=== PATIENT | male | born 1995 | race Two or more races ===

== ENCOUNTER 2017-04-20 23:31 | Emergency (ER) | payer SELFPAY ==
[~2017-04-20] VITALS: Ht 182.9 cm; Wt 71.7 kg
[2017-04-20 23:37] VITALS: BP 134/74
[2017-04-20] MEDS ORDERED: PRED20TA PO (23:46)
[2017-04-20] MEDS ORDERED: AMOX1TAB61 PO (23:46)
--- NOTE | 2017-04-20 23:46 | PHYS DOC ---
Adult General Chief Complaint Chief Complaint: SORE THROAT HPI HPI Patient is a 21 year old male presents to the ED complaining of sore throat 3 days. Describes his sore throat as sharp. Rates the pain as 6 out of 10. Associated symptoms include subjective fever and ear pain. Tolerating PO. Denies nausea/vomiting, headache, chest pain, shortness of breath, abdominal pain, weakness, dizziness or rash. Review of Systems Review of Systems Constitutional: Denies fever or chills [] Eyes: Denies change in visual acuity, redness, or eye pain [] HENT: Complains of sore throat and ear pain. [] Respiratory: Denies cough or shortness of breath [] Cardiovascular: No additional information not addressed in HPI [] GI: Denies abdominal pain, nausea, vomiting, bloody stools or diarrhea [] : Denies dysuria or hematuria [] Musculoskeletal: Denies back pain or joint pain [] Integument: Denies rash or skin lesions [] Neurologic: Denies headache, focal weakness or sensory changes [] Endocrine: Denies polyuria or polydipsia [] All other systems were reviewed and found to be within normal limits, except as documented in this note. Current Medications Current Medications Current Medications Medications (Trade) Dose Ordered Sig/Ryan Start Time Stop Time Status Last Admin Dose Admin Acetaminophen/ Hydrocodone Bitart (Lortab 5/325) 1 tab 1X ONCE 04/21/17 00:00 04/21/17 00:01 DC 04/21/17 00:02 1 TAB Amoxicillin/ Clavulanate Potassium (Augmentin 875/ 125mg) 1 tab 1X ONCE 04/21/17 00:00 04/21/17 00:01 DC 04/21/17 00:09 1 TAB Dexamethasone Sodium Phosphate (Decadron) 8 mg 1X ONCE 04/21/17 00:00 04/21/17 00:01 DC 04/21/17 00:02 8 MG Allergies Allergies Allergies Coded Allergies Type Severity Reaction Last Updated Verified No Known Drug Allergies 04/20/17 No Physical Exam Physical Exam Constitutional: Well developed, well nourished, no acute distress, non-toxic appearance. [] HENT: Normocephalic, atraumatic, bilateral external ears normal, oropharynx moist, MILD PHARYNGEAL ERYTHEMA WITH EXUDATE. UVULA MIDLINE., nose normal. [] Eyes: PERRLA, EOMI, conjunctiva normal, no discharge. [] Neck: Normal range of motion, no tenderness, supple, no stridor. [] Cardiovascular:Heart rate regular rhythm, no murmur [] Lungs & Thorax: Bilateral breath sounds clear to auscultation [] Abdomen: Bowel sounds normal, soft, no tenderness, no masses, no pulsatile masses. [] Skin: Warm, dry, no erythema, no rash. [] Neurologic: Alert and oriented X 3, normal motor function, normal sensory function, no focal deficits noted. [] Psychologic: Affect normal, judgement normal, mood normal. [] Current Patient Data Vital Signs Vital Signs Date Time Temp Pulse Resp B/P (MAP) Pulse Ox O2 Delivery O2 Flow Rate FiO2 04/21/17 00:02 18 98 Room Air 04/20/17 23:37 98.4 91 98.4 EKG EKG [] Radiology/Procedures Radiology/Procedures [] Course & Med Decision Making Course & Med Decision Making Pertinent Labs and Imaging studies reviewed. (See chart for details) [] Dragon Disclaimer Dragon Disclaimer This electronic medical record was generated, in whole or in part, using a voice recognition dictation system. Departure Departure Impression: Primary Impression: Pharyngitis Disposition: 01 HOME, SELF-CARE Condition: IMPROVED Referrals: SANDRA JEREZ MD, MICHAEL M MD Patient Instructions: Viral and Bacterial Pharyngitis Scripts Prednisone (PREDNISONE) 20 Mg Tablet 2 TAB PO DAILY, #10 TAB Prov: TUCKER LIM 04/20/17 Amoxicillin/Potassium Clav (AUGMENTIN 875-125 TABLET) 1 Each Tablet 1 TAB PO BID, #20 TAB Prov: TUCKER LIM 04/20/17 TUCKER LIM Apr 20, 2017 23:46
[2017-04-21] MEDS ORDERED: HYDROcodone/APAP 5/325MG 1 TAB TABLET PO ONE
[2017-04-21] MEDS ORDERED: DEXAMETHASONE SOD PHOS 4 MG/ML VIAL IM ONE
[2017-04-21] MEDS ORDERED: AMOXICILLIN/K CLAV 875/125MG TABLET. PO ONE
== END 2017-04-21 00:23 | disposition home or self-care (01) ==
LOC: ER 23:31
DX: J02.9 Acute pharyngitis, unspecified (principal)
CPT/HCPCS: 96372; 99283; J1100